=== PATIENT | male | born 1990 | race Caucasian/White ===

== ENCOUNTER → 2016-11-16 | Outpatient (CLI) | payer OTHER ==
[2016-11-16 12:18] LABS: BASO % 0.8 %; BASO ABS # 0.04 K/uL (0-0.2); COMPLETE YES; EOS % 0.8 %; HEMATOCRIT 48.4 % (42-52); IG% 0.2 %; LYMPH % 35.9 %; LYMPH ABS # 1.75 K/uL (1.2-3.4); MEAN CELL VOLUME 87.5 fL (80-100); MEAN CORPUSCULAR HGB CONC 34.3 g/dl (32-36); MEAN PLATELET VOLUME 9.5 fL (7.4-10.4); MONO % 10.9 %; NEUT % 51.4 %; PLATELET COUNT 220 K/uL (130-400); RED BLOOD COUNT 5.53 M/uL (4.7-6.1); WHITE BLOOD COUNT 4.87 K/uL (4.8-10.8)
[2016-11-16 12:51] LABS: HEPATITIS B AB POS
[2016-11-16 13:59] LABS: ALT/SGPT 59 U/L (12-78); BLOOD UREA NITROGEN 14 mg/dl (7-18); BUN/CREATININE RATIO 13.9 (10-20); CALCIUM 9.2 mg/dl (8.5-10.1); CARBON DIOXIDE 32 mmol/L (21-32); CHLORIDE 102 mmol/L (98-107); GLUCOSE 93 mg/dl (70-99); POTASSIUM 4.4 mmol/L (3.5-5.1); SODIUM 137 mmol/L (136-145)
[2016-11-16 14:02] LABS: ALB/GLOB RATIO 1.1 (0.9-2); ALKALINE PHOSPHATASE 72 U/L (45-117); AST/SGOT 228 U/L (15-37)
[2016-11-21 23:19] LABS: LSP % CELLS ANALYZED CD4 33 % (30-61); LSP ABSOLUTE CT CD4 737 cells/uL (490-1740); LSP LYMPHOCYTES ABSOLUTE 2216 cells/uL (850-3900)
== END | disposition home or self-care (01) ==
LOC: C.LAB1850 10:58
PROVIDERS: ATTEND Internal Medicine Infectious Disease
DX: B20 Human immunodeficiency virus [HIV] disease (principal)

== ENCOUNTER → 2017-02-21 | Outpatient (CLI) | payer OTHER ==
[2017-02-21 09:33] LABS: BASO % 0.6 %; BASO ABS # 0.03 K/uL (0-0.2); COMPLETE YES; EOS % 1.7 %; LYMPH % 43.2 %; LYMPH ABS # 2.04 K/uL (1.2-3.4); MEAN CELL VOLUME 85.1 fL (80-100); MEAN CORPUSCULAR HEMOGLOBIN 31.5 pg (25-34); MEAN PLATELET VOLUME 9.3 fL (7.4-10.4); MONO % 8.9 %; NEUT % 45.6 %; PLATELET COUNT 197 K/uL (130-400); RED BLOOD COUNT 5.17 M/uL (4.7-6.1); WHITE BLOOD COUNT 4.72 K/uL (4.8-10.8)
[2017-02-21 09:50] LABS: ALT/SGPT 19 U/L (12-78); AST/SGOT 13 U/L (15-37); BLOOD UREA NITROGEN 19 mg/dl (7-18); CALCIUM 8.9 mg/dl (8.5-10.1); CARBON DIOXIDE 28 mmol/L (21-32); CHLORIDE 103 mmol/L (98-107); CREATININE 1.14 mg/dl (0.60-1.40); GLUCOSE 70 mg/dl (70-99); POTASSIUM 3.8 mmol/L (3.5-5.1); SODIUM 137 mmol/L (136-145)
[2017-02-21 09:52] LABS: ALB/GLOB RATIO 1.1 (0.9-2); ALKALINE PHOSPHATASE 59 U/L (45-117)
[2017-02-24 14:32] LABS: LSP % CELLS ANALYZED CD4 23 % (30-61); LSP ABSOLUTE CT CD4 496 cells/uL (490-1740); LSP LYMPHOCYTES ABSOLUTE 2159 cells/uL (850-3900)
== END | disposition home or self-care (01) ==
LOC: C.LAB1850 08:09
PROVIDERS: ATTEND Internal Medicine Infectious Disease
DX: B20 Human immunodeficiency virus [HIV] disease (principal)

== ENCOUNTER 2022-07-23 00:03 | Inpatient (IN) ==
[2022-07-23] MEDS ORDERED: SODIUM CHLORIDE 0.9% 1000ML 1,000 ML IV STA (01:12)
[2022-07-23] MEDS ORDERED: GI COCKTAIL ED USE PO ONE (01:12)
[2022-07-23] MEDS ORDERED: FAMOTIDINE 20MG IV PUSH 20 MG/5 ML SYR IV STA (01:12)
--- NOTE | 2022-07-23 01:20 | Emergency Department Note ---
History of Present Illness General Chief complaint: Diarrhea Stated complaint: DIARRHEA,UPPER ABD PAIN Time Seen by Provider: 07/23/22 01:04 History of Present Illness Maximum Pain Intensity: 3 This 32-year-old with HIV undetectable viral load presents to the ER complaining of abdominal pain nausea upset stomach and diarrhea with fever and chills for the past week. Patient denies chest pain, dyspnea, cough, congestion, urinary symptoms. He just got treated for gonorrhea. No other concerns per patient. He went to [facility] the other day and was started on omeprazole. Home Medications Medication Instructions Recorded Confirmed Type elviteg 150 mg-cob 150 mg-emtricit 1 tab PO QDL 11/09/19 07/23/22 History 200 mg-tenofo alafenam 10 mg tablet (Genvoya) omeprazole 40 mg capsule,delayed 40 mg PO DAILY 07/23/22 07/23/22 History release ondansetron 4 mg disintegrating 4 mg translingual Q6H PRN 07/23/22 07/23/22 History tablet NAUSEA/VOMITING Allergies Allergy/AdvReac Type Severity Reaction Status Date / Time No Known Allergies Allergy Verified 07/23/22 02:16 Past Med/Surg History Medical History (Updated 07/23/22 @ 06:14 by Shaniqua Pandya PA-C) Human immunodeficiency virus (HIV) disease IBS (irritable bowel syndrome) Family History Denies family history of Crohn's disease Colorectal cancer Ulcerative colitis Social History Smoking Status: Never smoker Hx Alcohol Use: Yes Hx Substance Use: No Preferred Language: Citizen Of [place] 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 marital status: Single Current Living Situation: Alone current occupational status: employed current occupation: Instructor Feels Safe at Home: Yes Childhood Exposure to Second-Hand Smoke: Yes Diet: other Diet Comment: NO RED MEAT caffeine: Yes during the past year weight has: remained stable Dental Care, Regularly: Yes Physical Activity Frequency: 3-4 Times per Week Seatbelt Use: always Sunscreen Use: Yes Do you think of yourself as: lesbian/mcconnell/homosexual Review of Systems A total of 10 systems reviewed and were otherwise negative Physical Exam Vital Signs Vital Signs - 24 hr 07/23/22 00:17 07/23/22 01:12 07/23/22 02:55 Temperature 36.5 C Temperature Source Temporal Artery Scan Pulse Rate 83 79 Pulse Rate [Apical] 67 Respiratory Rate 16 18 Blood Pressure 110/69 Blood Pressure [Right Arm] 117/71 Blood Pressure Mean 82 Blood Pressure Mean [Right Arm] 86 Pulse Oximetry 97 96 Oxygen Delivery Method Room Air Room Air Sepsis Recent Fever Within 48 Hours No Sepsis New/Unexplained Change in Mental Status N/A Sepsis Action Taken by Nursing No Action Required 07/23/22 04:57 Temperature Temperature Source Pulse Rate 63 Pulse Rate [Apical] Respiratory Rate Blood Pressure Blood Pressure [Right Arm] Blood Pressure Mean Blood Pressure Mean [Right Arm] Pulse Oximetry Oxygen Delivery Method Sepsis Recent Fever Within 48 Hours Sepsis New/Unexplained Change in Mental Status Sepsis Action Taken by Nursing VITALS: Vitals are noted on the nurse's note and reviewed by myself. Vital signs stable. GENERAL: Pleasant male, in no acute distress, nondiaphoretic, well-developed well-nourished. SKIN: The skin was without rashes, erythema, edema, or bruising. There is no tenting of the skin. Capillary reflex less than 2 seconds. HEAD: Normocephalic atraumatic. EARS: External auditory canals clear EYES: Pupils equal round and reactive to light and accommodation. Conjunctivae without injection, sclerae without icterus. Extraocular movements intact. NOSE: Patent, turbinates without inflammation or discharge. MOUTH: Mucous membranes moist. Pharynx without erythema or exudate. Uvula midline. Airway patent. Tongue does not deviate. NECK: Supple without nuchal rigidity. No lymphadenopathy. No thyromegaly. Cervical spine is nontender. No JVD. HEART: Regular rate and rhythm LUNGS: Clear to auscultation bilaterally without wheezes, rales or rhonchi. No retractions or accessory muscle use. ABDOMEN: Positive bowel sounds x 4. Normal tympanic percussion. Soft, tender lower abdomen, without masses or organomegaly. Simons sign negative. No guarding or rebound tenderness. No CVA tenderness MUSCULOSKELETAL: No muscle atrophy, erythema, or edema noted. NEURO: Patient was alert and oriented to person place and time. Normal sensation to light and sharp touch. No focal neurological deficits. Course Administered Medications Discontinued Medications Al Hydrox/Mg Hydrox/Simethicone (Gi Cocktail Ed Use) 1 dose PO ONE ONE Stop: 07/23/22 01:13 Last Admin: 07/23/22 01:53 Dose: 1 dose Documented By: GABINO Sodium Chloride (Nss 1000ml) 1,000 mls @ 999 mls/hr IV .Q1H1M STA Stop: 07/23/22 02:12 Last Infusion: 07/23/22 02:55 Dose: 0 mls/hr Documented By: Admin: 07/23/22 01:53 Dose: 999 mls/hr Documented By: GABINO Famotidine (Pepcid 20mg Iv Push) 20 mg in 5 mls @ 2.5 mls/min IV NOW STA Stop: 07/23/22 01:13 Last Admin: 07/23/22 01:53 Dose: 2.5 mls/min Documented By: GABINO Sodium Chloride (Nss 1000ml) 1,000 mls @ 999 mls/hr IV .Q1H1M ONE Stop: 07/23/22 05:23 Last Admin: 07/23/22 04:49 Dose: 999 mls/hr Documented By: JOSEPH Ioversol (Optiray 320 100ml) 82 ml IV ONCE ONE Stop: 07/23/22 02:55 Last Admin: 07/23/22 02:47 Dose: 82 ml Documented By: DALLAS Nitazoxanide (Nitazoxanide 500 Mg Tab) 500 mg PO NOW STA; Protocol Stop: 07/23/22 04:19 Last Admin: 07/23/22 04:40 Dose: Not Given Documented By: JOSEPH Medical Decision Making Medical Records Attestation: I reviewed the patient's medical records. Home Medications Current Medication List: was personally reviewed by me Laboratory Data Attestation: I reviewed the patient's lab results. 07/23/22 01:00 07/23/22 01:00 Lab Results 07/23/22 07/23/22 07/23/22 Range/Units 01:00 01:00 01:50 WBC 6.89 (4.8-10.8) K/ul RBC 4.83 (4.70-6.10) M/uL Hgb 15.0 (14.0-18.0) g/dl Hct 41.6 L (42.0-52.0) % MCV 86.1 (80.0-100.0) fL MCH 31.1 (25.0-34.0) pg MCHC 36.1 H (32.0-36.0) g/dL RDW Std Deviation 39.3 (36.4-46.3) fL RDW Coeff of Martinez 12.7 (11.5-14.5) % Plt Count 240 (130-400) K/uL MPV 9.2 L (9.4-12.4) fL Immature Gran % (Auto) 0.4 % Neut % (Auto) 56.2 % Lymph % (Auto) 31.1 % Wagoner % (Auto) 10.0 % Eos % (Auto) 1.7 % Baso % (Auto) 0.6 % Neut # (Auto) 3.87 (1.40-6.50) K/uL Lymph # (Auto) 2.14 (1.2-3.4) K/uL Wagoner # (Auto) 0.69 H (0.11-0.59) K/uL Eos # (Auto) 0.12 (0-0.50) K/uL Baso # (Auto) 0.04 (0-0.2) K/uL Immature Gran # (Auto) 0.03 (0.01-0.20) K/uL Sodium 139 (136-145) mmol/L Potassium 3.7 (3.5-5.1) mmol/L Chloride 105 (98-107) mmol/L Carbon Dioxide 29 (21-32) mmol/L Anion Gap 5 (3-11) BUN 18 (6-23) mg/dl Creatinine 1.14 (0.6-1.4) mg/dl Est Cr Clr Drug Dosing 100.0 ml/min Est GFR ( Amer) 98.8 ml/min Est GFR (Non-Af Amer) 85.2 ml/min BUN/Creatinine Ratio 15.8 (10-20) Glucose 88 (70-99(Fasting)) mg/dl Lactate 0.4 (0.4-2.0) mmol/L Calcium 9.1 (8.6-10.3) mg/dl Magnesium 1.9 (1.7-2.4) mg/dl Total Bilirubin 0.5 (0.2-1.0) mg/dl AST 42 H (13-39) U/L ALT 35 (7-52) U/L Alkaline Phosphatase 54 (34-104) U/L Total Protein 7.1 (6.0-8.3) gm/dl Albumin 4.4 (3.4-5.0) gm/dl Globulin 2.7 (2.5-4.0) gm/dl Albumin/Globulin Ratio 1.6 (0.9-2) Lipase 57 (11-82) U/L Urine Color Urine Appearance (Clear) Urine pH (4.5-7.5) Ur Specific Milmay (1.000-1.030) Urine Protein (Negative) Urine Glucose (UA) (Negative) Urine Ketones (Negative) Urine Blood (Negative) Urine Nitrite (Negative) Urine Bilirubin (Negative) Urine Urobilinogen (Negative) Ur Leukocyte Esterase (Negative) Stl C. cayetanensis PCR (NotDetected) Stool Rotavirus A PCR (NotDetected) Stl Adenov F 40/41 PCR (NotDetected) Stool Astrovirus (PCR) (NotDetected) Stool Campylobacter PCR (NotDetected) Stl C. diff Tox B Gene (Neg) Stool Cryptosporidium PCR (NotDetected) Stl E.coli Shiga Tox PCR (NotDetected) Stl Enterotoxigenic E PCR (NotDetected) Stool EPEC (PCR) (NotDetected) Stool EAEC (PCR) (NotDetected) Stl E. histolytica PCR (NotDetected) Stool Giardia Lamblia PCR (NotDetected) Stool Salmonella PCR (NotDetected) Stool Sapovirus (PCR) (NotDetected) Stl P. shigelloides PCR (NotDetected) Stl Shigella/EIEC PCR (NotDetected) St Y.enterocolitica PCR (NotDetected) Stool Vibrio (PCR) (NotDetected) Stl Vibrio cholerae PCR (NotDetected) Stl Norovirus GI/GII PCR (NotDetected) SARS-CoV-2, RNA, NAAT (NEGATIVE) 07/23/22 07/23/22 07/23/22 Range/Units 02:00 02:00 02:00 WBC (4.8-10.8) K/ul RBC (4.70-6.10) M/uL Hgb (14.0-18.0) g/dl Hct (42.0-52.0) % MCV (80.0-100.0) fL MCH (25.0-34.0) pg MCHC (32.0-36.0) g/dL RDW Std Deviation (36.4-46.3) fL RDW Coeff of Martinez (11.5-14.5) % Plt Count (130-400) K/uL MPV (9.4-12.4) fL Immature Gran % (Auto) % Neut % (Auto) % Lymph % (Auto) % Wagoner % (Auto) % Eos % (Auto) % Baso % (Auto) % Neut # (Auto) (1.40-6.50) K/uL Lymph # (Auto) (1.2-3.4) K/uL Wagoner # (Auto) (0.11-0.59) K/uL Eos # (Auto) (0-0.50) K/uL Baso # (Auto) (0-0.2) K/uL Immature Gran # (Auto) (0.01-0.20) K/uL Sodium (136-145) mmol/L Potassium (3.5-5.1) mmol/L Chloride (98-107) mmol/L Carbon Dioxide (21-32) mmol/L Anion Gap (3-11) BUN (6-23) mg/dl Creatinine (0.6-1.4) mg/dl Est Cr Clr Drug Dosing ml/min Est GFR ( Amer) ml/min Est GFR (Non-Af Amer) ml/min BUN/Creatinine Ratio (10-20) Glucose (70-99(Fasting)) mg/dl Lactate (0.4-2.0) mmol/L Calcium (8.6-10.3) mg/dl Magnesium (1.7-2.4) mg/dl Total Bilirubin (0.2-1.0) mg/dl AST (13-39) U/L ALT (7-52) U/L Alkaline Phosphatase (34-104) U/L Total Protein (6.0-8.3) gm/dl Albumin (3.4-5.0) gm/dl Globulin (2.5-4.0) gm/dl Albumin/Globulin Ratio (0.9-2) Lipase (11-82) U/L Urine Color Yellow Urine Appearance Clear (Clear) Urine pH 5.5 (4.5-7.5) Ur Specific Milmay 1.018 (1.000-1.030) Urine Protein Negative (Negative) Urine Glucose (UA) Negative (Negative) Urine Ketones Negative (Negative) Urine Blood Negative (Negative) Urine Nitrite Negative (Negative) Urine Bilirubin Negative (Negative) Urine Urobilinogen Negative (Negative) Ur Leukocyte Esterase Negative (Negative) Stl C. cayetanensis PCR Not Detected (NotDetected) Stool Rotavirus A PCR Not Detected (NotDetected) Stl Adenov F 40/41 PCR Not Detected (NotDetected) Stool Astrovirus (PCR) Not Detected (NotDetected) Stool Campylobacter PCR Not Detected (NotDetected) Stl C. diff Tox B Gene Negative Cdiff Gene (Neg) Stool Cryptosporidium PCR DETECTED A* (NotDetected) Stl E.coli Shiga Tox PCR Not Detected (NotDetected) Stl Enterotoxigenic E PCR Not Detected (NotDetected) Stool EPEC (PCR) Not Detected (NotDetected) Stool EAEC (PCR) Not Detected (NotDetected) Stl E. histolytica PCR Not Detected (NotDetected) Stool Giardia Lamblia PCR Not Detected (NotDetected) Stool Salmonella PCR Not Detected (NotDetected) Stool Sapovirus (PCR) Not Detected (NotDetected) Stl P. shigelloides PCR Not Detected (NotDetected) Stl Shigella/EIEC PCR Not Detected (NotDetected) St Y.enterocolitica PCR Not Detected (NotDetected) Stool Vibrio (PCR) Not Detected (NotDetected) Stl Vibrio cholerae PCR Not Detected (NotDetected) Stl Norovirus GI/GII PCR Not Detected (NotDetected) SARS-CoV-2, RNA, NAAT (NEGATIVE) 07/23/22 Range/Units Unknown WBC (4.8-10.8) K/ul RBC (4.70-6.10) M/uL Hgb (14.0-18.0) g/dl Hct (42.0-52.0) % MCV (80.0-100.0) fL MCH (25.0-34.0) pg MCHC (32.0-36.0) g/dL RDW Std Deviation (36.4-46.3) fL RDW Coeff of Martinez (11.5-14.5) % Plt Count (130-400) K/uL MPV (9.4-12.4) fL Immature Gran % (Auto) % Neut % (Auto) % Lymph % (Auto) % Wagoner % (Auto) % Eos % (Auto) % Baso % (Auto) % Neut # (Auto) (1.40-6.50) K/uL Lymph # (Auto) (1.2-3.4) K/uL Wagoner # (Auto) (0.11-0.59) K/uL Eos # (Auto) (0-0.50) K/uL Baso # (Auto) (0-0.2) K/uL Immature Gran # (Auto) (0.01-0.20) K/uL Sodium (136-145) mmol/L Potassium (3.5-5.1) mmol/L Chloride (98-107) mmol/L Carbon Dioxide (21-32) mmol/L Anion Gap (3-11) BUN (6-23) mg/dl Creatinine (0.6-1.4) mg/dl Est Cr Clr Drug Dosing ml/min Est GFR ( Amer) ml/min Est GFR (Non-Af Amer) ml/min BUN/Creatinine Ratio (10-20) Glucose (70-99(Fasting)) mg/dl Lactate (0.4-2.0) mmol/L Calcium (8.6-10.3) mg/dl Magnesium (1.7-2.4) mg/dl Total Bilirubin (0.2-1.0) mg/dl AST (13-39) U/L ALT (7-52) U/L Alkaline Phosphatase (34-104) U/L Total Protein (6.0-8.3) gm/dl Albumin (3.4-5.0) gm/dl Globulin (2.5-4.0) gm/dl Albumin/Globulin Ratio (0.9-2) Lipase (11-82) U/L Urine Color Urine Appearance (Clear) Urine pH (4.5-7.5) Ur Specific Milmay (1.000-1.030) Urine Protein (Negative) Urine Glucose (UA) (Negative) Urine Ketones (Negative) Urine Blood (Negative) Urine Nitrite (Negative) Urine Bilirubin (Negative) Urine Urobilinogen (Negative) Ur Leukocyte Esterase (Negative) Stl C. cayetanensis PCR (NotDetected) Stool Rotavirus A PCR (NotDetected) Stl Adenov F 40/41 PCR (NotDetected) Stool Astrovirus (PCR) (NotDetected) Stool Campylobacter PCR (NotDetected) Stl C. diff Tox B Gene (Neg) Stool Cryptosporidium PCR (NotDetected) Stl E.coli Shiga Tox PCR (NotDetected) Stl Enterotoxigenic E PCR (NotDetected) Stool EPEC (PCR) (NotDetected) Stool EAEC (PCR) (NotDetected) Stl E. histolytica PCR (NotDetected) Stool Giardia Lamblia PCR (NotDetected) Stool Salmonella PCR (NotDetected) Stool Sapovirus (PCR) (NotDetected) Stl P. shigelloides PCR (NotDetected) Stl Shigella/EIEC PCR (NotDetected) St Y.enterocolitica PCR (NotDetected) Stool Vibrio (PCR) (NotDetected) Stl Vibrio cholerae PCR (NotDetected) Stl Norovirus GI/GII PCR (NotDetected) SARS-CoV-2, RNA, NAAT NEGATIVE (NEGATIVE) Imaging Data Attestation: I personally reviewed and interpreted this imaging study as follows: Radiologist's Impression: Abdomen/Pelvis CT 07/23/22 01:12 Exam(s): CT ABDOMEN + PELVIS With Contrast IV Amt: 82 ML EXAM: CT Abdomen and Pelvis With Intravenous Contrast CLINICAL HISTORY: Reason for exam: lower abd pain, D, HIV. TECHNIQUE: Axial computed tomography images of the abdomen and pelvis with intravenous contrast. Automated exposure control was utilized for the study. A dose lowering technique was utilized adhering to the principles of ALARA. CONTRAST: Patient received 82 ML of IV contrast COMPARISON: None. FINDINGS: Lung bases: Unremarkable. No mass. No consolidation. ABDOMEN: Liver: Unremarkable. No mass. Gallbladder and bile ducts: Unremarkable. No calcified stones. No ductal dilation. Pancreas: Unremarkable. No mass. No ductal dilation. Spleen: Spleen measures 14.3 cm. Adrenals: Unremarkable. No mass. Kidneys and ureters: Unremarkable. No solid mass. No hydronephrosis. Stomach and bowel: Diffuse thickening of the wall throughout the colon, more significant through the distal sigmoid concerning for colitis. No obstruction. PELVIS: Appendix: Normal appendix. Bladder: Unremarkable. No mass. Reproductive: Unremarkable as visualized. ABDOMEN and PELVIS: Intraperitoneal space: Unremarkable. No free air. No significant fluid collection. Bones/joints: No acute fracture. No dislocation. Soft tissues: Unremarkable. Vasculature: Unremarkable. No abdominal aortic aneurysm. Lymph nodes: Unremarkable. No enlarged lymph nodes. IMPRESSION: 1. Findings most compatible with mild colitis, more significant through the distal sigmoid and rectum. No acute appendicitis or bowel obstruction. 2. Mild splenomegaly, otherwise normal abdominal viscera. Electronically signed by: Jacqueline Whatley MD 07/23/22 04:38 AM [facility] Narrative Prior records/ancillary studies reviewed and summarized above. Nursing notes reviewed. Additional history obtained from nursing. The patient's history was concerning for abdominal pain nausea and diarrhea and a HIV patient. Differential diagnosis: Etiologies such as stool infx, metabolic, infection, hypo/hyperglycemia, electrolyte abnormalities, cardiac sources, intracerebral event, toxicologic, neurologic, as well as others were entertained. Physical examination: As above. ER treatment provided: IV Lock An order was placed for continuous cardiac monitoring. The monitor shows a rate of 60-100 with a sinus rhythm per my interpretation. IV fluids, GI cocktail, Pepcid were ordered Nitazoxanide was ordered and is a sent out. On reassessment the patient felt better. Diagnostics interpretation by me: The labs Independently Interpreted by myself revealed positive stool culture for Cryptosporidiosis Negative C. difficile Imaging studies: CT was reviewed and concerning for colitis per my independent interpretation Consultation: A consultation was placed with the hospitalist. The case was discussed and diagnostics were reviewed. The patient was evaluated in the ER for further treatment. I spoke with pharmacy and pharmacy will have to call in order the Nitazoxanide medication for the Cryptosporidiosis and it is 500 mg twice daily for 14 days. I spoke with ID at [facility] Dr. Laird and states that the Nitazoxanide is the first-line treatment and we need to wait to the medication arrives. He also recommend supportive care. Exam and history seem consistent with cryptosporidiosis and an HIV patient. Patient's been symptomatic for over a week. Medicine is consulted and will evaluate the patient for admission. CAT scan was reviewed. Labs and diagnostics are in for interpreted by myself. Pharmacy was contacted as the medication for the treatment is a special order request. This was initiated. ID at [facility] was also consulted as the patient HIV and the Cryptosporidium infection. By the evaluation outlined above emergent etiologies such as electrolyte abnormalities, cardiac sources, intracerebral event, toxologic, neurologic, abnormalities blood glucose, metabolic, as well as others were deemed relatively unlikely. The pt informed about the findings as listed above. All questions were answered and pleased with the treatment. The chart was completed utilizing [employer] Speech voice recognition software. Grammatical errors, random word insertions, pronoun errors, and incomplete sentences are an occassional consequence of this system due to software limitations, ambient noise, and hardware issues. Any formal questions or concerns about the content, text, or information contained within the body of this dictation should be directly addressed to the physician orthotics assistant for clarification. Impression & Plan Cryptosporidiosis associated with HIV infection, Colitis Discharge Plan Visit Data Chief Complaint: Diarrhea Stated Complaint: DIARRHEA,UPPER ABD PAIN ED Provider: Ankush [facility] ED Midlevel Provider: Shaniqua Pandya Discharge Problem: Cryptosporidiosis associated with HIV infection, Colitis Patient Disposition: Admitted As Inpatient Condition: Good Forms Stand Alone Forms: My [employer] Prescriptions Prescriptions: No Action Genvoya [phone] mg tablet 1 tab PO QDL Rx Instructions: Takes at 1215 omeprazole 40 mg capsule,delayed release(DR/EC) 40 mg PO DAILY ondansetron 4 mg tablet,disintegrating 4 mg translingual Q6H PRN (Reason: NAUSEA/VOMITING) Referrals Referrals: Everett Haong MD [Primary Care Provider] -
[2022-07-23 01:37] LABS: Basophils # (auto) 0.04 K/uL (0-0.2); Basophils % (auto) 0.6 %; Eosinophils # (auto) 0.12 K/uL (0-0.50); Eosinophils % (auto) 1.7 %; Hematocrit (blood only) 41.6 % (42.0-52.0); Immature Granulocytes # (auto) 0.03 K/uL (0.01-0.20); Immature Granulocytes % (auto) 0.4 %; Lymphocytes # (auto) 2.14 K/uL (1.2-3.4); Lymphocytes % (auto) 31.1 %; Mean Corpuscular Hemoglobin 31.1 pg (25.0-34.0); Mean Corpuscular Hgb Conc 36.1 g/dL (32.0-36.0); Mean Corpuscular Volume 86.1 fL (80.0-100.0); Mean Platelet Volume 9.2 fL (9.4-12.4); Monocytes # (auto) 0.69 K/uL (0.11-0.59); Neutrophils # (auto) 3.87 K/uL (1.40-6.50); Neutrophils % (auto) 56.2 %; Platelet Count 240 K/uL (130-400); RDW Coefficient of Variation 12.7 % (11.5-14.5); RDW Standard Deviation 39.3 fL (36.4-46.3); Red Blood Count 4.83 M/uL (4.70-6.10); White Blood Count 6.89 K/ul (4.8-10.8)
[2022-07-23 01:45] LABS: Albumin Globulin Ratio 1.6 (0.9-2); Albumin Level 4.4 gm/dl (3.4-5.0); BUN Creatinine Ratio 15.8 (10-20); Bilirubin,Total 0.5 mg/dl (0.2-1.0); Calcium 9.1 mg/dl (8.6-10.3); Est GFR (African American) 98.8 ml/min; Est GFR (Non-African American) 85.2 ml/min; Globulin 2.7 gm/dl (2.5-4.0); Magnesium 1.9 mg/dl (1.7-2.4); Potassium 3.7 mmol/L (3.5-5.1); Total Protein 7.1 gm/dl (6.0-8.3)
[2022-07-23 02:24] LABS: Appearance Urine Clear (Clear); Bilirubin Urine Negative (Negative); Blood Urine Negative (Negative); Color Urine Yellow; Glucose Urine UA Negative (Negative); Ketones Urine Negative (Negative); Leukocyte Esterase Urine Negative (Negative); Nitrite Urine Negative (Negative); Protein Urine Negative (Negative); Specific Gravity Urine 1.018 (1.000-1.030); Urobilinogen Urine Negative (Negative); pH Urine 5.5 (4.5-7.5)
[2022-07-23] MEDS ORDERED: OPTIRAY 320 100ml IV ONE (02:54)
[2022-07-23 03:43] LABS: Adenovirus F 40/41 PCR Not Detected (NotDetected); Astrovirus PCR Not Detected (NotDetected); Campylobacter PCR Not Detected (NotDetected); Cyclospora cayetanensis PCR Not Detected (NotDetected); Entamoeba histolytica PCR Not Detected (NotDetected); Enteroaggregative E.coli(EAEC) Not Detected (NotDetected); Enteropathogenic E.coli (EPEC) Not Detected (NotDetected); Enterotoxigenic E.coli (ETEC) Not Detected (NotDetected); Giardia lamblia PCR Not Detected (NotDetected); Norovirus GI/GII PCR Not Detected (NotDetected); Plesiomonas shigelloides PCR Not Detected (NotDetected); Rotavirus A PCR Not Detected (NotDetected); Salmonella PCR Not Detected (NotDetected); Sapovirus PCR Not Detected (NotDetected); Shiga-like Toxin E.coli (STEC) Not Detected (NotDetected); Shigella/Enteroinvasive E.coli Not Detected (NotDetected); Vibrio cholerae PCR Not Detected (NotDetected); Vibrio species PCR Not Detected (NotDetected); Yersinia enterocolitica PCR Not Detected (NotDetected)
[2022-07-23 03:58] LABS: Cryptosporidium PCR DETECTED (NotDetected)
[2022-07-23] MEDS ORDERED: NITAZOXANIDE 500 MG TAB PO STA (04:18)
[2022-07-23] MEDS ORDERED: SODIUM CHLORIDE 0.9% 1000ML 1,000 ML IV ONE (04:23)
--- NOTE | 2022-07-23 04:39 | CT Scan Report ---
Exam(s): CT ABDOMEN + PELVIS With Contrast IV Amt: 82 ML EXAM: CT Abdomen and Pelvis With Intravenous Contrast CLINICAL HISTORY: Reason for exam: lower abd pain, D, HIV. TECHNIQUE: Axial computed tomography images of the abdomen and pelvis with intravenous contrast. Automated exposure control was utilized for the study. A dose lowering technique was utilized adhering to the principles of ALARA. CONTRAST: Patient received 82 ML of IV contrast COMPARISON: None. FINDINGS: Lung bases: Unremarkable. No mass. No consolidation. ABDOMEN: Liver: Unremarkable. No mass. Gallbladder and bile ducts: Unremarkable. No calcified stones. No ductal dilation. Pancreas: Unremarkable. No mass. No ductal dilation. Spleen: Spleen measures 14.3 cm. Adrenals: Unremarkable. No mass. Kidneys and ureters: Unremarkable. No solid mass. No hydronephrosis. Stomach and bowel: Diffuse thickening of the wall throughout the colon, more significant through the distal sigmoid concerning for colitis. No obstruction. PELVIS: Appendix: Normal appendix. Bladder: Unremarkable. No mass. Reproductive: Unremarkable as visualized. ABDOMEN and PELVIS: Intraperitoneal space: Unremarkable. No free air. No significant fluid collection. Bones/joints: No acute fracture. No dislocation. Soft tissues: Unremarkable. Vasculature: Unremarkable. No abdominal aortic aneurysm. Lymph nodes: Unremarkable. No enlarged lymph nodes. IMPRESSION: 1. Findings most compatible with mild colitis, more significant through the distal sigmoid and rectum. No acute appendicitis or bowel obstruction. 2. Mild splenomegaly, otherwise normal abdominal viscera. Electronically signed by: Jacqueline Whatley MD 07/23/22 04:38 AM
--- NOTE | 2022-07-23 05:56 | History & Physical Report ---
Date of Service July 23, 2022 Assessment & Plan (1) Cryptosporidiosis associated with HIV infection: (2) Colitis: (3) Human immunodeficiency virus (HIV) infection: (4) IBS (irritable bowel syndrome): Plan Cryptosporidiosis gastroenteritis in setting of HIV- ED phone consult with infectious disease reports that it is okay to wait until tomorrow when the appropriate treatment Nitazoxanide 500 mg twice daily x14 days will be available NSS + KCl 20 mEq at 125 mils per hour Full liquid diet Zofran 4 mg IV every 6 hours as needed Famotidine 20 mg IV twice daily Could consider cholestyramine as a bulk forming agent HIV- Patient will bring in his own Genvoya GERD/IBS- Change omeprazole to pantoprazole per formulary interchange History of Present Illness Chief Complaint: The patient presents to the emergency department with complaint of abdominal and pelvic discomfort, nausea, diarrhea with fevers and chills over the past week. 4 days ago he was treated with IM ceftriaxone for gonorrhea, with no ch rafael/worsening in GI symptoms Primary Care Provider: Everett Hoang MD The patient is a 32-year-old male patient with HIV with undetectable viral load, who presented to the emergency department with the above symptoms. He has been to [facility] and was started on omeprazole a few days ago. Work-up in the emergency department included CT scan of abdomen pelvis which showed mild colitis, especially involving the distal sigmoid and rectum, and a mildly enlarged spleen. CBC with differential and chemistry profile were normal except for an AST of 42. Stool PCR was positive for Cryptosporidium. Allergies Allergy/AdvReac Type Severity Reaction Status Date / Time No Known Allergies Allergy Verified 07/23/22 02:16 Home Medications Medication Instructions Recorded Confirmed Type elviteg 150 mg-cob 150 mg-emtricit 1 tab PO QDL 11/09/19 07/23/22 History 200 mg-tenofo alafenam 10 mg tablet (Genvoya) omeprazole 40 mg capsule,delayed 40 mg PO DAILY 07/23/22 07/23/22 History release ondansetron 4 mg disintegrating 4 mg translingual Q6H PRN 07/23/22 07/23/22 History tablet NAUSEA/VOMITING Past Med/Surg History Medical History (Updated 07/23/22 @ 06:42 by Terell Burton MD) Human immunodeficiency virus (HIV) disease IBS (irritable bowel syndrome) Family History Denies family history of Crohn's disease Colorectal cancer Ulcerative colitis Social History Smoking Status: Never smoker Hx Alcohol Use: Yes Hx Substance Use: No Preferred Language: Jordanian 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 marital status: Single Current Living Situation: Alone current occupational status: employed current occupation: Instructor Feels Safe at Home: Yes Childhood Exposure to Second-Hand Smoke: Yes Diet: other Diet Comment: NO RED MEAT caffeine: Yes during the past year weight has: remained stable Dental Care, Regularly: Yes Physical Activity Frequency: 3-4 Times per Week Seatbelt Use: always Sunscreen Use: Yes Do you think of yourself as: lesbian/mcconnell/homosexual Review of Systems Review of Systems: The patient denies chest pain, palpitations, shortness of breath, dyspnea on exertion, cough, lower extremity swelling, sore throat, fevers, chills, sweats, vomiting, blood in urine or stool, dysuria, urinary frequency or urgency, lightheadedness, dizziness, headache, memory loss, loss of consciousness, rash, abnormal bruising or bleeding, imbalance, focal or generalized weakness, numbness or tingling in arms or legs, generalized arthralgias or myalgias, back or neck pain, or night sweats. The review of systems is otherwise negative other than for that already noted above, and at least 10 systems have been reviewed. Physical Exam Physical Exam: The patient is awake, alert and oriented 3, well developed and well nourished, normocephalic and atraumatic, lying in bed and in no acute distress. HEENT--PERRL, EOMI, mucous membranes and oropharynx dry. Neck--supple. No JVD. No bruits. Thyroid normal, trachea midline, no adenopathy. Heart--normal S1 and S2. No murmurs, rubs or gallops. Lungs--clear bilaterally, no respiratory distress, no accessory muscle use. Abdomen--normal bowel sounds and soft. Nontender. Nondistended, no hernias or masses, no organomegaly. Extremities--no cyanosis or clubbing. No edema. Dermatologic--normal skin turgor, normal color, no abnormal lymph nodes, no rash. Neurologic--cranial nerves II through XII grossly intact. Rheumatologic--normal range of motion. Psychiatric--normal affect. Results & Data Results & Data Vital Signs (Past 12 Hours) Vital Signs Temp Pulse Pulse Resp BP BP Pulse Ox 07/23/22 02:55 67 18 117/71 96 07/23/22 01:12 79 07/23/22 00:17 36.5 C 83 16 110/69 97 O2 Del Method 07/23/22 02:55 Room Air 07/23/22 01:12 07/23/22 00:17 Room Air Laboratory Results Laboratory Results WBC 6.89 K/ul (4.8-10.8) 07/23/22 01:00 RBC 4.83 M/uL (4.70-6.10) 07/23/22 01:00 Hgb 15.0 g/dl (14.0-18.0) 07/23/22 01:00 Hct 41.6 % (42.0-52.0) L 07/23/22 01:00 MCV 86.1 fL (80.0-100.0) 07/23/22 01:00 MCH 31.1 pg (25.0-34.0) 07/23/22 01:00 MCHC 36.1 g/dL (32.0-36.0) H 07/23/22 01:00 RDW Std Deviation 39.3 fL (36.4-46.3) 07/23/22 01:00 RDW Coeff of Martinez 12.7 % (11.5-14.5) 07/23/22 01:00 Plt Count 240 K/uL (130-400) 07/23/22 01:00 MPV 9.2 fL (9.4-12.4) L 07/23/22 01:00 Immature Gran % (Auto) 0.4 % 07/23/22 01:00 Neut % (Auto) 56.2 % 07/23/22 01:00 Lymph % (Auto) 31.1 % 07/23/22 01:00 Griggs % (Auto) 10.0 % 07/23/22 01:00 Eos % (Auto) 1.7 % 07/23/22 01:00 Baso % (Auto) 0.6 % 07/23/22 01:00 Neut # (Auto) 3.87 K/uL (1.40-6.50) 07/23/22 01:00 Lymph # (Auto) 2.14 K/uL (1.2-3.4) 07/23/22 01:00 Griggs # (Auto) 0.69 K/uL (0.11-0.59) H 07/23/22 01:00 Eos # (Auto) 0.12 K/uL (0-0.50) 07/23/22 01:00 Baso # (Auto) 0.04 K/uL (0-0.2) 07/23/22 01:00 Immature Gran # (Auto) 0.03 K/uL (0.01-0.20) 07/23/22 01:00 Sodium 139 mmol/L (136-145) 07/23/22 01:00 Potassium 3.7 mmol/L (3.5-5.1) 07/23/22 01:00 Chloride 105 mmol/L (98-107) 07/23/22 01:00 Carbon Dioxide 29 mmol/L (21-32) 07/23/22 01:00 Anion Gap 5 (3-11) 07/23/22 01:00 BUN 18 mg/dl (6-23) 07/23/22 01:00 Creatinine 1.14 mg/dl (0.6-1.4) 07/23/22 01:00 Est Cr Clr Drug Dosing 100.0 ml/min 07/23/22 01:00 Est GFR ( Amer) 98.8 ml/min 07/23/22 01:00 Est GFR (Non-Af Amer) 85.2 ml/min 07/23/22 01:00 BUN/Creatinine Ratio 15.8 (10-20) 07/23/22 01:00 Glucose 88 mg/dl (70-99(Fasting)) 07/23/22 01:00 Lactate 0.4 mmol/L (0.4-2.0) 07/23/22 01:50 Calcium 9.1 mg/dl (8.6-10.3) 07/23/22 01:00 Magnesium 1.9 mg/dl (1.7-2.4) 07/23/22 01:00 Total Bilirubin 0.5 mg/dl (0.2-1.0) 07/23/22 01:00 AST 42 U/L (13-39) H 07/23/22 01:00 ALT 35 U/L (7-52) 07/23/22 01:00 Alkaline Phosphatase 54 U/L (34-104) 07/23/22 01:00 Total Protein 7.1 gm/dl (6.0-8.3) 07/23/22 01:00 Albumin 4.4 gm/dl (3.4-5.0) 07/23/22 01:00 Globulin 2.7 gm/dl (2.5-4.0) 07/23/22 01:00 Albumin/Globulin Ratio 1.6 (0.9-2) 07/23/22 01:00 Lipase 57 U/L (11-82) 07/23/22 01:00 Urine Color Yellow 07/23/22 02:00 Urine Appearance Clear (Clear) 07/23/22 02:00 Urine pH 5.5 (4.5-7.5) 07/23/22 02:00 Ur Specific [place] 1.018 (1.000-1.030) 07/23/22 02:00 Urine Protein Negative (Negative) 07/23/22 02:00 Urine Glucose (UA) Negative (Negative) 07/23/22 02:00 Urine Ketones Negative (Negative) 07/23/22 02:00 Urine Blood Negative (Negative) 07/23/22 02:00 Urine Nitrite Negative (Negative) 07/23/22 02:00 Urine Bilirubin Negative (Negative) 07/23/22 02:00 Urine Urobilinogen Negative (Negative) 07/23/22 02:00 Ur Leukocyte Esterase Negative (Negative) 07/23/22 02:00 Stl C. cayetanensis PCR Not Detected (NotDetected) 07/23/22 02:00 Stool Rotavirus A PCR Not Detected (NotDetected) 07/23/22 02:00 Stl Adenov F 40/41 PCR Not Detected (NotDetected) 07/23/22 02:00 Stool Astrovirus (PCR) Not Detected (NotDetected) 07/23/22 02:00 Stool Campylobacter PCR Not Detected (NotDetected) 07/23/22 02:00 Stl C. diff Tox B Gene Negative Cdiff Gene (Neg) 07/23/22 02:00 Stool Cryptosporidium PCR DETECTED (NotDetected) A* 07/23/22 02:00 Stl E.coli Shiga Tox PCR Not Detected (NotDetected) 07/23/22 02:00 Stl Enterotoxigenic E PCR Not Detected (NotDetected) 07/23/22 02:00 Stool EPEC (PCR) Not Detected (NotDetected) 07/23/22 02:00 Stool EAEC (PCR) Not Detected (NotDetected) 07/23/22 02:00 Stl E. histolytica PCR Not Detected (NotDetected) 07/23/22 02:00 Stool Giardia Lamblia PCR Not Detected (NotDetected) 07/23/22 02:00 Stool Salmonella PCR Not Detected (NotDetected) 07/23/22 02:00 Stool Sapovirus (PCR) Not Detected (NotDetected) 07/23/22 02:00 Stl P. shigelloides PCR Not Detected (NotDetected) 07/23/22 02:00 Stl Shigella/EIEC PCR Not Detected (NotDetected) 07/23/22 02:00 St Y.enterocolitica PCR Not Detected (NotDetected) 07/23/22 02:00 Stool Vibrio (PCR) Not Detected (NotDetected) 07/23/22 02:00 Stl Vibrio cholerae PCR Not Detected (NotDetected) 07/23/22 02:00 Stl Norovirus GI/GII PCR Not Detected (NotDetected) 07/23/22 02:00 SARS-CoV-2, RNA, NAAT NEGATIVE (NEGATIVE) 07/23/22 Unknown Impressions Abdomen/Pelvis CT 07/23/22 01:12 Exam(s): CT ABDOMEN + PELVIS With Contrast IV Amt: 82 ML EXAM: CT Abdomen and Pelvis With Intravenous Contrast CLINICAL HISTORY: Reason for exam: lower abd pain, D, HIV. TECHNIQUE: Axial computed tomography images of the abdomen and pelvis with intravenous contrast. Automated exposure control was utilized for the study. A dose lowering technique was utilized adhering to the principles of ALARA. CONTRAST: Patient received 82 ML of IV contrast COMPARISON: None. FINDINGS: Lung bases: Unremarkable. No mass. No consolidation. ABDOMEN: Liver: Unremarkable. No mass. Gallbladder and bile ducts: Unremarkable. No calcified stones. No ductal dilation. Pancreas: Unremarkable. No mass. No ductal dilation. Spleen: Spleen measures 14.3 cm. Adrenals: Unremarkable. No mass. Kidneys and ureters: Unremarkable. No solid mass. No hydronephrosis. Stomach and bowel: Diffuse thickening of the wall throughout the colon, more significant through the distal sigmoid concerning for colitis. No obstruction. PELVIS: Appendix: Normal appendix. Bladder: Unremarkable. No mass. Reproductive: Unremarkable as visualized. ABDOMEN and PELVIS: Intraperitoneal space: Unremarkable. No free air. No significant fluid collection. Bones/joints: No acute fracture. No dislocation. Soft tissues: Unremarkable. Vasculature: Unremarkable. No abdominal aortic aneurysm. Lymph nodes: Unremarkable. No enlarged lymph nodes. IMPRESSION: 1. Findings most compatible with mild colitis, more significant through the distal sigmoid and rectum. No acute appendicitis or bowel obstruction. 2. Mild splenomegaly, otherwise normal abdominal viscera. Electronically signed by: Jacqueline Whatley MD 07/23/22 04:38 AM Code Status & VTE Plan Code Status Full code VTE Prophylaxis Plan VTE Prophylaxis will be ordered: Yes PG Care Time/CCT Total # of Minutes Spent Total Time Spent with Patient: Total time spent is greater than 50% in coordination of care (as documented) at patient's floor/unit and/or counseling patient: Coding Level of Care Code 84532 INT INP/OBS CARE 3/75MIN Diagnoses Cryptosporidiosis associated with HIV infection B20; A07.2 Colitis K52.9 Human immunodeficiency virus (HIV) infection B20 IBS (irritable bowel syndrome) K58.9
[2022-07-23] MEDS ORDERED: ONDANSETRON INJ 2 MG/ML 2 ML VIAL IV PRN (09:38)
[2022-07-23] MEDS ORDERED: ACETAMINOPHEN 325 MG TAB PO PRN (09:38)
[2022-07-23] MEDS ORDERED: FAMOTIDINE 20MG/5ML IV PUSH IV ONE (10:14)
[2022-07-23] MEDS: PANTOprazole 40 MG TAB PO SCH (10:20)
[2022-07-23] MEDS: NSS + 20MEQ KCL 20 MEQ/1,000 ML BAG IV SCH ×2 (10:21→18:39)
[2022-07-23] MEDS: FAMOTIDINE 20 MG in SYRINGE 3 ML IV SCH ×2 (10:21→21:55)
[2022-07-23] MEDS: ELVITEGRAVIR PO SCH (12:21)
[2022-07-23] MEDS: TENOFOVIR ALAFENAMIDE PO SCH (12:21)
[2022-07-23] MEDS: COBICISTAT PO SCH (12:21)
[2022-07-23] MEDS: EMTRICITABINE PO SCH (12:21)
--- NOTE | 2022-07-23 16:08 | Communication Note ---
Date of Service: July 23, 2022 seen in f/u from early AM admit. good questions, answered to the best of my ability. awaiting ID input. feels OK otherwise as per H&P
[2022-07-24] MEDS: NSS + 20MEQ KCL 20 MEQ/1,000 ML BAG IV SCH ×2 (02:30→10:34)
[2022-07-24 08:01] LABS: Basophils # (auto) 0.03 K/uL (0-0.2); Basophils % (auto) 0.6 %; Eosinophils # (auto) 0.07 K/uL (0-0.50); Eosinophils % (auto) 1.4 %; Hematocrit (blood only) 37.9 % (42.0-52.0); Hemoglobin 13.4 g/dl (14.0-18.0); Immature Granulocytes # (auto) 0.01 K/uL (0.01-0.20); Immature Granulocytes % (auto) 0.2 %; Lymphocytes # (auto) 1.81 K/uL (1.2-3.4); Lymphocytes % (auto) 36.3 %; Mean Corpuscular Hemoglobin 30.7 pg (25.0-34.0); Mean Corpuscular Hgb Conc 35.4 g/dL (32.0-36.0); Mean Corpuscular Volume 86.9 fL (80.0-100.0); Mean Platelet Volume 9.6 fL (9.4-12.4); Monocytes # (auto) 0.45 K/uL (0.11-0.59); Neutrophils # (auto) 2.62 K/uL (1.40-6.50); Neutrophils % (auto) 52.5 %; Platelet Count 208 K/uL (130-400); RDW Coefficient of Variation 13.1 % (11.5-14.5); Red Blood Count 4.36 M/uL (4.70-6.10); White Blood Count 4.99 K/ul (4.8-10.8)
--- NOTE | 2022-07-24 08:20 | Hospitalist Progress Note ---
Date of Service July 24, 2022 Assessment & Plan (1) Cryptosporidiosis associated with HIV infection: (2) Colitis: (3) Human immunodeficiency virus (HIV) infection: (4) IBS (irritable bowel syndrome): Admission and Anticipated Discharge Date Admission Date: July 23, 2022 Supervising Physician Co-Signing Physician Notes Attending attestation Pt seen and examined in concert with Dr. Talamantes. In agreement with the documented findings as noted in the resident documentation with any exceptions or additions as noted here. Reports resolution of frequent BM for the last day or so and tolerating full diet (though somewhat bland by patient standards) without nausea. On examination, S1/S2 nl RRR no MCG. CTAB. Abd NT/ND BS+ve Crypto gastroenteritis in the setting of HIV with undetectable viral load - tolerated first dose of nitazoxanide today without ill effect. Continue PPI/H2 therapy. Counseling provided re: dietary exacerbating factors to avoid. Pending ID evaluation today at 1600 Else as noted above. Subjective Patient is awake and seated upright at bedside on arrival this morning. Patient has not had a bowel movement for longer than 24 hours. He has no nausea and has tolerated breakfast well, though he is less than pleased with the liquidity of said breakfast. He is looking forward to lunch. Review of Systems Review of Systems: All systems reviewed & are unremarkable except as noted in HPI & below Physical Exam Physical Exam: General: No acute distress HEENT: PERRLA. Normal conjunctiva, anicteric sclera. Oropharynx normal. Respiratory: Normal respiratory effort, CTABL. Cardiovascular: RRR without murmurs, gallops, or rubs. No pedal edema. GI: Soft abdomen with normal bowel sounds heard on auscultation. Nontender x4 quadrants Neuro: Alert and oriented x3. Results & Data Results & Data Vital Signs (Past 12 Hours) Vital Signs Temp Pulse Pulse Resp BP Pulse Ox O2 Del Method 07/24/22 07:54 36.4 C L 58 L 18 118/62 96 Room Air 07/23/22 22:24 36.9 C 60 16 106/62 98 Room Air
[2022-07-24 08:24] LABS: Albumin Globulin Ratio 1.6 (0.9-2); Albumin Level 3.6 gm/dl (3.4-5.0); BUN Creatinine Ratio 10.8 (10-20); Bilirubin,Total 0.5 mg/dl (0.2-1.0); Calcium 8.6 mg/dl (8.6-10.3); Creatinine Clr Calc Pharmacy 111.8 ml/min; Est GFR (Non-African American) 97.5 ml/min; Globulin 2.3 gm/dl (2.5-4.0); Magnesium 1.9 mg/dl (1.7-2.4); Potassium 4.6 mmol/L (3.5-5.1); Total Protein 5.9 gm/dl (6.0-8.3)
[2022-07-24] MEDS: FAMOTIDINE 20 MG in SYRINGE 3 ML IV SCH (09:03)
[2022-07-24] MEDS: PANTOprazole 40 MG TAB PO SCH (09:49)
[2022-07-24] MEDS ORDERED: NITAZOXANIDE 500 MG TAB PO SCH (10:00)
[2022-07-24] MEDS: TENOFOVIR ALAFENAMIDE PO SCH (12:10)
[2022-07-24] MEDS: ELVITEGRAVIR PO SCH (12:10)
[2022-07-24] MEDS: COBICISTAT PO SCH (12:10)
[2022-07-24] MEDS: EMTRICITABINE PO SCH (12:10)
--- NOTE | 2022-07-24 18:08 | Discharge Summary ---
Date of Service July 24, 2022 Admission HPI Per Admitting Provider The patient is a 32-year-old male patient with HIV with undetectable viral load, who presented to the emergency department with the above symptoms. He has been to [facility] and was started on omeprazole a few days ago. Work-up in the emergency department included CT scan of abdomen pelvis which showed mild colitis, especially involving the distal sigmoid and rectum, and a mildly enlarged spleen. CBC with differential and chemistry profile were normal except for an AST of 42. Stool PCR was positive for Cryptosporidium. Admission Exam Per Admitting Provider The patient is awake, alert and oriented 3, well developed and well nourished, normocephalic and atraumatic, lying in bed and in no acute distress. HEENT--PERRL, EOMI, mucous membranes and oropharynx dry. Neck--supple. No JVD. No bruits. Thyroid normal, trachea midline, no adenopathy. Heart--normal S1 and S2. No murmurs, rubs or gallops. Lungs--clear bilaterally, no respiratory distress, no accessory muscle use. Abdomen--normal bowel sounds and soft. Nontender. Nondistended, no hernias or masses, no organomegaly. Extremities--no cyanosis or clubbing. No edema. Dermatologic--normal skin turgor, normal color, no abnormal lymph nodes, no rash. Neurologic--cranial nerves II through XII grossly intact. Rheumatologic--normal range of motion. Psychiatric--normal affect. Principal Diagnosis Cryptosporidium gastroenteritis Discharge Exam General: No acute distress HEENT: PERRLA. Normal conjunctiva, anicteric sclera. Oropharynx normal. Respiratory: Normal respiratory effort, CTABL. Cardiovascular: RRR without murmurs, gallops, or rubs. No pedal edema. GI: Soft abdomen with normal bowel sounds heard on auscultation. Nontender x4 quadrants Neuro: Alert and oriented x3. Discharge Data Allergies Allergy/AdvReac Type Severity Reaction Status Date / Time No Known Allergies Allergy Verified 07/23/22 02:16 Consultations 07/23/22 04:51 ED Decision to Admit Stat 07/23/22 08:27 Consult Infectious Diseases Routine Ordered Studies 07/23/22 01:12 CT abd pelvis IV con only Stat Hospital Course (1) Cryptosporidiosis associated with HIV infection: 32 M with PMH significant for HIV (undetectable viral load; controlled on HAART) who presented with abdominal pain, pelvic pain, nausea, diarrhea, fever/chills x1 week, refractory to IM ceftriaxone (prescribed separately for gonorrhea). Admitted for management of Cryptosporidium gastroenteritis (covered on stool PCR). Cryptosporidiosis associated with HIV infection -Diagnosis made following stool PCR. -No diarrhea x24 hours. Advanced diet from full liquids to regular diet, which patient tolerated well. -Started on nitazoxanide 500 mg p.o. twice daily on 07/24/2022. Infectious disease consulted. * Per ID, patient cleared for discharge home, continue nitazoxanide as above x14 days. * IV Zofran 4 mg every 6 hours as needed * IV famotidine 20 mg twice daily HIV -Chronic; managed at home on Genvoya (LV zafymmxggwn-cnfruqfsam-kwtqeiggteksr-tenofovir alafen) daily. * Continue home regimen IBS -Chronic; managed on omeprazole * Converted to pantoprazole, 40 mg p.o. daily (2) Human immunodeficiency virus (HIV) infection: (3) IBS (irritable bowel syndrome): Total Time Total Time Spent Total Time Spent (In Minutes): Please see attending attestation. Discharge Plan Discharge Items Patient Disposition: Home - Self-Care Reason For Visit: CRYOPTOSPORIDUM GASTROENTERITIS Discharge Diagnosis: Cryptosporidium gastroenteritis Condition on Discharge: Good Activity: Per Instructions section Non-emergency contact: Primary Care Provider Call non-emergency contact if: you have any medication questions, your symptoms worsen, your pain is not controlled and your temperature is above 101 Follow-up/Referrals: Everett Hoang MD [Primary Care Provider] - Diet: Regular Addtl Attending Provider Instructions: Dear Juan, You came to the emergency room because of fever and diarrheal symptoms for about a week. We evaluated you in the emergency room and you were found to have gastroenteritis, or an inflammation of your GI tract, likely caused by a bacterial pathogen known as Cryptosporidium. We admitted you to the hospital to ensure that your diarrheal symptoms improved on the medication you were prescribed, which it did. We also consulted with the infectious disease specialist, who confirmed and agreed with the prescribed medication. Now that your symptoms have improved and your treatment has been approved by our spec ialist, we feel that you are ready to be discharged home. 1. We are sending a medication called nitazoxanide to your pharmacy. Please take nitazoxanide 500 mg twice daily for 14 days. 2. We made no other changes to your medications. Continue to take them as instructed, unless otherwise directed to by your primary care physician. 3. It is important that you make a follow-up appointment with your primary care physician, so that they are aware of your recent hospitalization. 4. When you are home, gently reintroduce your regular foods back into your diet. If you experience any of the same symptoms again, you should attempt a trial of a bland diet until your symptoms improve. If your symptoms fail to improve following the initiation of a bland diet, contact your primary care physician. It has been a pleasure to care for you here at [facility]. If you have any questions or concerns about your care, please contact us at [phone]. Pending Studies at Discharge: No Stand-Alone Forms: [facility], Smoking Cessation Medications and DC Order Prescriptions: New nitazoxanide 500 mg Tablet 500 mg PO BID 13 Days Qty: 26 0RF Continued Genvoya [phone] mg tablet 1 tab PO QDL Rx Instructions: Takes at 1215 omeprazole 40 mg capsule,delayed release(DR/EC) 40 mg PO DAILY ondansetron 4 mg tablet,disintegrating 4 mg translingual Q6H PRN (Reason: NAUSEA/VOMITING) Discharge Orders: Discharge Order (Routine); Ordered 07/24/22 Ordered By: Mariajose Talamantes Admission Data Admit Date/Time: 07/23/22 05:55 Attending Provider: Eagle Quinn Admit Provider: Terell Burton Primary Care Provider: Everett Hoang Other Providers: Naveen Duncan ; Shawn Tyler ; Sumeet Cervantes I. ; Rodrick Block II ; Ara Peng ; Kyler Woods ; Jamie Thomas ; Lauryn Laird ; Terell Burton Other Interventions: Discharge Summary Assessment (RN) Last Done: 07/24/22 18:35 Supervising Physician Co-Signing Physician Notes Attending attestation Pt seen and examined in concert with Dr. Okulate. In agreement with the documented findings as noted in the resident documentation with any exceptions or additions as noted here. Resolution of diarrheal illness without abdominal pain complaint. On examination, S1/S2 nl RRR no MCG. CTAB. Abd NT/ND BS+ve Cryptosporidiosis gastroenteritis in the setting of HIV infection - to complete course of nitazoxanide, continue HAART. Else see resident documentation as noted. Total attending physician time spent with this patient's care on the day of discharge: 40 minutes. Resident Activity Tracking Resident Involvement: Resident Care Provided Care Provided: Adult Hospital Medicine
[2022-07-26 15:47] LABS: LSP % Cells Analyzed CD4 32 % (30-61); LSP Absolute Ct CD4 554 cells/uL (490-1740); LSP Lymphocytes Absolute 1706 cells/uL (850-3900)
[2022-07-28 16:47] LABS: HIV 1 RNA PCR Copies/ML Not Detected Copies/mL; HIV-1 RNA Log Copies/mL Not Detected Log cps/mL
== END 2022-07-24 18:48 | disposition home or self-care (01) | DRG 977 ==
LOC: ED 00:03 → EDINP 05:55 → SUATTDRO 05:55 → 3W 09:38